=== PATIENT | male | born 1970 | race Caucasian/White ===

== ENCOUNTER 2018-11-18 10:51 | Emergency (ER) | payer SELFPAY ==
[2018-11-18 11:13] VITALS: BP 156/95
--- NOTE | 2018-11-18 12:01 | UC ---
UC General HPI - HPI Summary HPI Summary: patient has noticed for the past year, 2 large bulges in his lower abdomen that he thinks are hernias, has contacted a clinic in [place] to be evaluated next week, but just wants to verify that they are hernias. - History of Current Complaint Chief Complaint: UCGeneralIllness Stated Complaint: POSSIBLE HERNIA Time Seen by Provider: 11/18/18 11:44 Hx Obtained From: Patient Onset/Duration: Gradual Onset Pain Intensity: 0 - Allergy/Home Medications Allergies/Adverse Reactions: Allergies Allergy/AdvReac Type Severity Reaction Status Date / Time No Known Allergies Allergy Verified 11/18/18 11:13 PMH/Surg Hx/FS Hx/Imm Hx Previously Healthy: Yes - Surgical History Surgical History: Yes Surgery Procedure, Year, and Place: umbilical hernia repair as a baby - Family History Known Family History: Positive: Hypertension - Social History Alcohol Use: Occasionally Substance Use Type: None Smoking Status (MU): Never Smoked Tobacco Review of Systems All Other Systems Reviewed And Are Negative: Yes Constitutional: Positive: Negative Skin: Positive: Negative Eyes: Positive: Negative ENT: Positive: Negative Respiratory: Positive: Negative Cardiovascular: Positive: Negative Gastrointestinal: Positive: Other - bulges Genitourinary: Positive: Negative Motor: Positive: Negative Neurovascular: Positive: Negative Musculoskeletal: Positive: Negative Neurological: Positive: Negative Psychological: Positive: Negative Is Patient Immunocompromised?: No Physical Exam Triage Information Reviewed: Yes Appearance: Well-Appearing, Well-Nourished, Pain Distress Vital Signs: Initial Vital Signs Temp 98.6 F 11/18/18 11:10 Pulse 93 11/18/18 11:10 Resp 16 11/18/18 11:10 BP 156/95 11/18/18 11:10 Pulse Ox 100 11/18/18 11:10 Vital Signs Reviewed: Yes Eye Exam: Normal ENT Exam: Normal Dental Exam: Normal Neck exam: Normal Respiratory Exam: Normal Respiratory: Positive: Chest non-tender, Lungs clear, Normal breath sounds Cardiovascular Exam: Normal Cardiovascular: Positive: RRR, No Murmur, Pulses Normal Abdominal Exam: Normal Bowel Sounds: Positive: Present Musculoskeletal: Positive: Strength Intact, ROM Intact, Other: - 2 large bilateral inguinal bulges noted , non tender, no swelling or pain in testicles Neurological Exam: Normal Psychological Exam: Normal Skin Exam: Normal Course/Dx - Course Course Of Treatment: hx obtained, exam performed ,med reviewed, his BP was elevated, but he states it has been this way for year. PCP list given and encouraged patient to find a DR to manage his blood pressure. Did recommend a local surgeon for evaluation of bilateral hernias, he states he has an appointment with a clinic in [place] to be evaluated next week. - Diagnoses Provider Diagnosis: Inguinal bulge, Hypertension Discharge - Sign-Out/Discharge Documenting (check all that apply): Patient Departure All imaging exams completed and their final reports reviewed: No Studies - Discharge Plan Condition: Stable Disposition: HOME Patient Education Materials: Inguinal Hernia (ED), Hypertension (ED) Referrals: No Primary Care Phys,NOPCP [Primary Care Provider] - Abdiel Dobbins MD [Medical Doctor] - Additional Instructions: 1. I recommend follow up with surgeon, if you are unable to keep your appointment in [place], i have included a local referral 2. Hold off on heavy lifting and activity till further evaluation 3. Your Blood pressure was elevated, I have included a list of local physcians to contact for follow up. - Billing Disposition and Condition Condition: STABLE Disposition: Home
== END 2018-11-18 12:07 | disposition home or self-care (01) ==
LOC: UCCORT 10:57
DX: K40.20 Bilateral inguinal hernia, without obstruction or gangrene, not specified as recurrent (principal); I10 Essential (primary) hypertension; Z82.49 Family history of ischemic heart disease and other diseases of the circulatory system
CPT/HCPCS: 99201; G0463